=== PATIENT | male | born 1975 | race Caucasian/White ===

== ENCOUNTER 2024-01-08 12:10 | Outpatient (CLI) | payer BC, SELFPAY | END 2024-01-08 12:11 | disposition home or self-care (01) | LOC: AMB 01-09 02:55 | PROVIDERS: Visit Provider Family Medicine | DX: R42 Dizziness and giddiness (principal); R11.0 Nausea | CPT/HCPCS: A0425; A0427 ==

== ENCOUNTER 2024-01-08 12:40 | Emergency (ER) | payer BC, SELFPAY ==
[2024-01-08 12:54] VITALS: BP 185/113; PULSE 79; RESP 18; TEMP 36.4; O2SAT 97; BMI 29.5
--- NOTE | 2024-01-08 12:58 | ED_ITS ---
HPI - General Adult General Date Seen: 01/08/24 Chief complaint: Dizziness/Vertigo Stated complaint: Dizziness Time Seen by Provider: 01/08/24 12:53 History of Present Illness HPI narrative: 48-year-old male with a history of hypertension (prescribed lisinopril 20 mg daily), colon polyps, familial tremor (no longer on propranolol), brought to the ER today by EMS from his place of employment for an episode of dizziness, sweatiness, nausea, and presyncope. He is accompanied by his . He has a history of hypertension and takes lisinopril and has been taking his med lately. He formally was on propranolol for tremor but did not like the side effects of. Some months ago. No other worsening tremor after to ceasing the medication. He has been healthy and normal lately. No recent illness, fever, vomiting, diarrhea. He was normal this morning. He ate his normal breakfast and it is normal morning routine. One change was that he often will get a coffee from [employer], but today he got 1 of their caffeinated refresher drinks rather than a coffee. He was feeling normally at work until about 11 50. He was at his desk working on his computer when he began to feel lightheaded like he might pass out. He became sweaty. He was very weak. No focal deficits. He spontaneously volunteers that there was no unusual spinning or sensation of movement. He was nauseous but did not throw up. No headache. No chest pain. No palpitations. No shortness of breath. No abdominal pain or back pain. He was pretty lightheaded and felt like he might lose consciousness so he laid down on the floor. He asked his coworkers to call the ambulance and they did. He reports that his blood pressure was elevated about 180/90 when EMS picked him up. Now that he is here in the ER his blood pressure is down to 150/90. He is feeling slightly better but is still lightheaded. The no double vision. No focal weakness or numbness in his arms or legs. No slurred speech. No confusion. No seizure Related Data Allergies Allergy/AdvReac Type Severity Reaction Status Date / Time No Known Drug Allergies Allergy Verified 01/08/24 12:53 PFSH PFS Social History Smoking Status: Never smoker Do you use any of these nicotine containing products: None How often do you have a drink containing alcohol: never How often do you have six or more drinks on one occasion: Never AUDIT-C Alcohol total score: 0 Non-prescribed substance use: denies use Exam Narrative: Exam Narrative: Constitutional: Appears well-developed and well-nourished. Alert. Conversant. Non toxic. HENT: Head: Atraumatic. Nose: Nose normal. Mouth/Throat: Oral mucosa is clear and moist. no trismus. Pharynx normal. Tonsils symmetric. No tonsillar enlargement, erythema, or exudate. Eyes: Wearing contacts. Conjunctivae normal. EOM normal. Pupils equal, round, and reactive to light. No scleral icterus. Subtle horizontal nystagmus with EOM testing. No vertical nystagmus. Neck: Normal range of motion. Neck supple. No tracheal deviation present. Cardiovascular: Normal rate, regular rhythm. No gallop. No friction rub. No murmur heard. Symmetric radial artery pulses Pulmonary/Chest: Feels a bit more symptomatic and lightheaded when he sits upper lung exam but otherwise no change in symptoms. No shortness of breath. Effort normal. No stridor. No respiratory distress. No wheezes. No rales. No rhonchi . No tenderness. Abdominal: Soft. Bowel sounds normal. No distension. No mass. No tenderness. No rebound. No guarding. Musculoskeletal: RUE: Normal range of motion. No tenderness. No deformity LUE: Normal range of motion. No tenderness. No deformity RLE: Normal range of motion. No edema. No tenderness. No deformity LLE: Normal range of motion. No edema. No tenderness. No deformity Neurological: Mental status normal. Attention normal. Alert and oriented x3. GCS 15. Memory normal. Speech fluent. Cognition normal. Cranial Nerves intact II-XII except I did not formally test gag or visual acuity. EOMI. Palate elevates symmetrically and tongue protrudes in the midline. Strength: 5/5 trapezius on the right and left 5/5 deltoid on the right and left 5/5 biceps on the right and left 5/5 triceps on the right and left 5/5 customs brokerage agent on the right and left 5/5 thumb opposition on the right and le ft 5/5 finger abduction on the right and le ft 5/5 hip flexors (L3) on the right and le ft 5/5 quadriceps (L4) on the right and lef t 5/5 tibialis anterior on the right and l eft 5/5 EHL (L5) on the right and left 5/5 gastrocnemius (S1) on the right and left 5/5 hamstring on the right and left Sensation intact to light touch in both upper extremities (C4-T1) Sensation intact to light touch in Both lower extremities (L4-S1). Finger to nose and coordination normal. Gait not assessed due to lightheadedness and risk for syncope. Skin: Skin is warm and dry. No rash noted. No pallor. Normal capillary refill. Psychiatric: Normal mood. Normal affect. He is polite. Mildly anxious but is humerous with his Const: Vital Signs, click to edit/add: Vital Signs - 24 hr 01/08/24 12:54 01/08/24 15:24 Temperature 97.5 F L Pulse Rate [Pulse Oximeter] 79 72 Respiratory Rate 18 18 Blood Pressure [Ri ght Upper Arm] 185/113 H 129/94 H Pulse Oximetry 97 98 Oxygen Delivery Me thod Room Air Course Vital Signs Vital signs: Initial Vital Signs Temperature 97.5 F L 01/08/24 12:54 Temperature Source Temporal Artery Scan 01/08/24 12:54 Pulse Rate 79 01/08/24 12:54 Respiratory Rate 18 01/08/24 12:54 Blood Pressure 185/113 H 01/08/24 12:54 Blood Pressure Mean 137 H 01/08/24 12:54 Pulse Oximetry 97 01/08/24 12:54 Vital Signs Temperature 97.5 F L 01/08/24 12:54 Pulse Rate 79 01/08/24 12:54 Respiratory Rate 18 01/08/24 12:54 Blood Pressure 185/113 H 01/08/24 12:54 Pulse Oximetry 97 01/08/24 12:54 Temperature 97.5 F L 01/08/24 12:54 Pulse Rate 72 01/08/24 15:24 Respiratory Rate 18 01/08/24 15:24 Blood Pressure 129/94 H 01/08/24 15:24 Pulse Oximetry 98 01/08/24 15:24 Oxygen Delivery Method Room Air 01/08/24 15:24 Medications Administered Medications: Discontinued Medications Generic Name Dose Route Start Last Admin Trade Name Freq PRN Reason Stop Dose Admin Sodium Chloride 1,000 mls @ 1,000 mls/hr 01/08/24 13:30 01/08/24 14:36 0.9 % Sodium Chloride 1000 Ml IV 01/08/24 14:29 Infused .Q1H VLADIMIR Infusion Meclizine HCl 25 mg 01/08/24 13:21 01/08/24 13:44 Meclizine Hcl 25 Mg Tablet PO 01/08/24 13:22 Not Given ONCE ONE Ondansetron HCl 4 mg 01/08/24 13:21 01/08/24 13:34 Ondansetron 2 Mg/Ml Inj IVP 01/08/24 13:22 4 mg ONCE ONE Administration Medical Decision Making MDM Narrative Medical decision making narrative: This patient presents for evaluation of a an episode of near-syncope, sweatiness, lightheadedness that occurred late this morning while he was at work. A broad differential was considered. 1st ER EKG shows atrial fibrillation with slow ventricular response. Shortly after that he converted back to normal sinus rhythm (without cardioversion or antiarrhythmic therapy). Symptoms improved shortly after conversion back to normal. He did not have any chest pain. EKGs are nonischemic. Troponin undetectable. No headache or other neurologic symptoms to suggest subarachnoid , stroke . No reported seizure-like activity or postictal phase. A broad differential diagnosis was considered including SVT, Atrial fibrillation, ventricular arrhythmia, thyroid disease, acute electrolyte abnormality, drugs/medications, medication side effect, anemia, heart disease, PE, among others. EKG shows that he had a slow ventricular response with his AFib with heart rate in the 50s. After conversion he has sinus rhythm in the 70s. Chads Vasc score is 1. Discussed with Cardiology through the [facility] access center from [facility]. They recommend arranging and 10 day outpatient Zio patch Holter monitor. They will contact the patient to arrange a clinic visit in the next 3- 4 weeks. For now, cardiology recommends against anticoagulation since chads Vasc score is low and this is a single, brief episode. Lab Data Labs: Lab Results 01/08/24 Range/Units 13:50 WBC 7.79 (4.50-11.00) K/uL RBC 4.29 L (4.30-5.90) m/uL Hgb 13.0 L (13.5-17.5) gm/dL Hct 38.8 (37.0-53.0) % MCV 90 (80-100) fL MCH 30 (26-34) pg MCHC 34 (32-36) gm/dL RDW Coeff of Anahi 12.7 (11.5-15.5) % Plt Count 174 (140-440) K/uL Neut % (Auto) 74.0 H (42.0-72.0) % Lymph % (Auto) 19.9 L (20-44) % Person % (Auto) 5.0 (0.0-11.0) % Eos % (Auto) 0.5 (0.0-7.0) % Baso % (Auto) 0.1 (0.0-3.0) % Neut # (Auto) 5.80 (1.7-7.0) K/uL Lymph # (Auto) 1.60 (0.90-2.90) K/uL Person # (Auto) 0.40 (0.00-0.90) K/UL Eos # (Auto) 0.04 (0.00-0.50) K/uL Baso # (Auto) 0.01 (0.00-0.30) K/uL Abs Immat Gran (auto) 0.04 (0.00-0.30) K/uL Imm/Tot Granulo (auto) 0.5 % D-Dimer Quant (PE/DVT) < 0.27 (0.00-0.50) ug/ml Sodium 139 (135-149) mmol/L Potassium 4.4 (3.6-5.1) mmol/L Chloride 107 (96-114) mmol/L Carbon Dioxide 21 (20-32) mmol/L Anion Gap 11 (7-15) mEq/L BUN 21 (5-24) mg/dL Creatinine 0.8 (0.5-1.5) mg/dL Estimated Creat Clear 129.86 Estimated GFR 108 ml/min Glucose 99 (60-115) mg/dL Lactate 1.5 (0.5-1.9) mmol/L Calcium 8.7 (8.4-10.6) mg/dL Troponin I < 0.01 L (0.01-0.04) ng/mL TSH 1.100 (0.270-4.200) uIU/mL Ethyl Alcohol < 0.01 L (0.01-0.03) % ECG Data Attestation: I personally reviewed and interpreted this ECG as follows: Interpretation: Atrial fibrillation with slow ventricular response and occasional PACs or junctional beats Rate: 53 VA: na QRS axis: Normal axis. No pathologic Q-waves ST segment/T wave: No ST segment elevation or depression. QTc: 459 EKG 2. Normal sinus rhythm Rate: 71 VA: 152. No delta waves QRS axis: Normal axis. No pathologic Q-waves. ST segment/T wave: No ST segment elevation or depression. QTc: 434 Discharge Plan Discharge Clinical Impression: Atrial fibrillation Patient Disposition: Home, Self-Care Condition: Stable Instructions: A-fib (Atrial Fibrillation) (ED) Additional Instructions: As we discussed, please come back to the ER right away if you have more dizzy spells, fainting spells, episodes of chest pain or trouble breathing, or any other concerning symptoms. Try to limit alcohol consumption and caffeine intake because these can trigger episodes of AFib You should receive a phone call tomorrow from your doctor at the [facility] to arrange follow-up and an outpatient heart monitor. You should wear the heart monitor for 10 days. This will help with your automobile mechanic apprentice to determine how often you are having episodes of atrial fibrillation and determine your plan of care. If you do not hear from her doctor by lunchtime tomorrow, call the [facility] your self to arrange follow-up. You will receive a phone call from [facility] in the next couple of days to arrange an appointment to follow up with the automobile mechanic apprentice Follow Up/Referrals: Provider,Not a Local [Primary Care Provider] - Stand Alone Forms: [employer] Info Instructions
[2024-01-08] MEDS: ONDANSETRON 2 MG/ML inj 4 MG IVP (13:34)
[2024-01-08] MEDS: 0.9 % SODIUM CHLORIDE 1000 ml 1,000 ML IV (13:38)
[2024-01-08 13:57] LABS: Lactate* 1.5 mmol/L (0.5-1.9)
[2024-01-08 14:03] LABS: Basophils Absolute Auto 0.01 K/uL (0.00-0.30); Basophils Percent Auto 0.1 % (0.0-3.0); Eosinophils Absolute Auto 0.04 K/uL (0.00-0.50); Eosinophils Percent Auto 0.5 % (0.0-7.0); Hematocrit 38.8 % (37.0-53.0); Immature Granulocytes Abs Auto 0.04 K/uL (0.00-0.30); Immature Granulocytes Pct Auto 0.5 %; Lymphocytes Percent Auto 19.9 % (20-44); Mean Corpuscular HGB Conc 34 gm/dL (32-36); Mean Corpuscular Hemoglobin 30 pg (26-34); Mean Corpuscular Volume 90 fL (80-100); Platelet Count* 174 K/uL (140-440); RDW Coefficient of Variation % 12.7 % (11.5-15.5); Red Blood Count 4.29 m/uL (4.30-5.90); White Blood Count* 7.79 K/uL (4.50-11.00)
[2024-01-08 14:07] LABS: Slide Review Reflex No
[2024-01-08 15:17] LABS: Chloride* 107 mmol/L (96-114); Potassium* 4.4 mmol/L (3.6-5.1); Sodium* 139 mmol/L (135-149)
[2024-01-08 15:19] LABS: Creatinine* 0.8 mg/dL (0.5-1.5); Est. Creatinine Clearance* 129.86; Estimated Glomerular Filt Rate 108 ml/min
[2024-01-08 15:20] LABS: Anion Gap 11 mEq/L (7-15); Blood Urea Nitrogen* 21 mg/dL (5-24); Calcium* 8.7 mg/dL (8.4-10.6); Carbon Dioxide* 21 mmol/L (20-32); Ethanol* < 0.01 % (0.01-0.03); Glucose* 99 mg/dL (60-115)
[2024-01-08 15:24] VITALS: BP 129/94; PULSE 72; RESP 18; O2SAT 98
[2024-01-08 15:32] LABS: Troponin I* < 0.01 ng/mL (0.01-0.04)
[2024-01-08 16:09] LABS: D Dimer Quantitative* < 0.27 ug/ml (0.00-0.50)
== END 2024-01-08 16:34 | disposition home or self-care (01) ==
PROVIDERS: Emergency Provider Emergency Medicine
DX: I48.20 Chronic atrial fibrillation, unspecified (principal)
CPT/HCPCS: 36415; 80048; 82077; 83605; 84443; 84484; 85025; 85379; 93005; 96374; 99283; 99284; J2405; J7030